=== PATIENT | female | born 1965 | race Caucasian/White ===

== ENCOUNTER → 2023-10-11 08:22 | Outpatient (REF) | payer BC, SELFPAY | LOC: HWWDC 08:22 | PROVIDERS: ATTENDING PHYSICIAN Nurse Practitioner Adult Health | DX: Z12.31 Encounter for screening mammogram for malignant neoplasm of breast (principal) | CPT/HCPCS: 77063; 77067 ==

== ENCOUNTER → 2024-10-30 07:03 | Outpatient (REF) | payer BC, SELFPAY | LOC: HWWDC 07:03 | PROVIDERS: ATTENDING PHYSICIAN Nurse Practitioner Adult Health | DX: Z12.31 Encounter for screening mammogram for malignant neoplasm of breast (principal) | CPT/HCPCS: 77063; 77067 ==

== ENCOUNTER → 2025-05-16 09:33 | Outpatient (REF) | payer BC, SELFPAY | LOC: EMG 09:33 | PROVIDERS: ATTENDING PHYSICIAN Nurse Practitioner Adult Health | DX: G56.01 Carpal tunnel syndrome, right upper limb (principal); R20.0 Anesthesia of skin | CPT/HCPCS: 95886; 95909 ==